=== PATIENT | male | born 1970 | race Caucasian/White ===

== ENCOUNTER 2020-11-06 13:28 | Outpatient (REF) | payer BC, SELFPAY ==
[2020-11-06 14:38] LABS: Abs Immature Grans 0.03 10^3/uL (0.0-0.06); Absolute Basophil Count 0.08 10^3/uL (0.0-0.2); Absolute Eosinophil Count 0.37 10^3/uL (0.0-0.7); Absolute Lymphocyte Count 2.07 10^3/uL (1.2-3.4); Absolute Monocyte Count 0.63 10^3/uL (0.1-0.8); Absolute Neutrophil Count 3.86 10^3/uL (1.2-6.7); Basophils % 1.1; Eosinophils % 5.3; HGB 13.9 g/dL (13.5-17.5); Immature Grans % 0.4; Lymphocytes % 29.4; MCH 33.2 pg (27.0-33.0); MCHC 33.9 % (32.0-36.0); MCV 97.9 fL (80-95); MPV 9.4 fL (8.0-11.0); Monocytes % 8.9; Neutrophils % 54.9; Nucleated RBC 0 %; Platelet Count 245 10^3/uL (130-400); RBC 4.19 10^6/uL (4.36-5.78); RDW 13.1 % (11.8-14.1); RDW-SD 46.8 fL; WBC 7.04 10^3/uL (4.4-10.8)
[2020-11-06 15:27] LABS: ALT 29 U/L (16-63); AST 26 U/L (15-37); Albumin 3.9 g/dL (3.4-5.0); Alkaline Phosphatase 65 U/L (46-116); Anion Gap 11.7 mmol/L (3-11); BUN 5 mg/dL (7-18); Bilirubin, Total 0.9 mg/dL (0.2-1.0); CO2 25.3 mmol/L (21.0-32.0); CREATININE 0.7 mg/dL (0.70-1.30); Calcium 8.9 mg/dL (8.5-10.1); Chloride 104 mmol/L (98-107); Glucose 85 mg/dL (74-106); Potassium 4.3 mmol/L (3.5-5.1); Sodium 141 mmol/L (136-145); Total Protein 7.4 g/dL (6.4-8.2)
[2020-11-09 12:04] LABS: TSH (W/Ref FT4) 0.72 uIU/mL (0.36-3.74)
== END 2020-11-06 13:29 | disposition home or self-care (01) ==
LOC: LBN 13:28
PROVIDERS: Visit Provider Nurse Practitioner Family
DX: R63.4 Abnormal weight loss (principal); R35.8 Other polyuria
CPT/HCPCS: 80053; 84443; 85025

== ENCOUNTER 2020-11-15 12:50 | Emergency (ER) | payer BC, SELFPAY ==
--- NOTE | 2020-11-15 13:00 | DI.CT_ITS ---
Exam(s) CT ABDOMEN PELVIS W EXAM: CT ABDOMEN PELVIS W CLINICAL HISTORY: vomiting blood, weight loss. TECHNIQUE: Imaging Protocol: Axial computed tomography images with coronal and sagittal reformatted images were created and reviewed CONTRAST MATERIAL: Intravenous: Omnipaque 100cc Oral: None COMPARISON: No exams were available for comparison FINDINGS: VISUALIZED LUNG BASES: No nodules nor pleural effusions evident. ABDOMEN: There is no ascites. LIVER: Liver is hypodense implying steatosis. Liver size is upper normal. There are no discrete foc al hepatic lesions. No significant dilatation of intrahepatic ducts. GALLBLADDER/BILIARY: No obvious gallbladder pathology. CBD is not dilated. PANCREAS: No evidence of pancreatic mass nor dilatation of the pancreatic duct. SPLEEN: Spleen is not enlarged. No obvious intrasplenic lesions. Splenic and portal veins are paten t. ADRENALS: There are no significant adrenal masses. KIDNEYS:There is a tiny 2 millimeter cyst in the lateral right renal cortex. No other focal right ki dney findings. No focal findings in the left kidney. No calculi nor hydronephrosis on either side. No hydroureter. No calculi in the urinary bladder. Bladder, however, appears somewhat distended. . ABDOMINAL AORTA: Calcified. Upper normal diameter. Common iliac arteries are calcified and upper no rmal diameter. LYMPH NODES:There is no retroperitineal nor paraaortic adenopathy. ABDOMINAL WALL: No evidence of significant anterior abdominal wall hernia. GI: There is no evidence of bowel obstruction, free air, nor abscess. PELVIS: GI: No evidence of appendicitis.No evidence of sigmoid diverticulitis. LYMPH NODES: There is no intrapelvic nor inguinal adenopathy. REPRODUCTIVE: Prostate is not enlarged. Seminal vesicles unremarkable URINARY BLADDER: Distended. No obvious masses nor calculi within the lumen. OSSEOUS: Peripherally sclerotic benign-appearing bone lesion noted in the right iliac bone, measuring 11 x 8 millimeters. Sacroiliac joints appear unremarkable. Annular bulging with an element of spinal canal stenosis at L 4-5 level IMPRESSION: 1. Hepatic steatosis. No focal hepatic lesions noted. No dilatation of the biliary tree. No obviou s gallstones. 2. Urinary bladder appears somewhat distended. No calculi nor masses therein. No significant focal renal findings with the exception of a tiny benign cyst in the lateral cortex of the right kidney anthony suring 2-3 millimeters. 3. Peripherally sclerotic 11 x 8 millimeter bone lesion in the right iliac bone adjacent to the sacro iliac joint, probably benign. 4. Central spinal canal stenosis at L4-5 level due to annular bulging. RADIATION DOSE DELIVERED: 674.87mGy.cm Total DLP DATA REPOSITORY: All CT scans at this facility are submitted to the National Radiology Data Registry (NRDR) Dose Index Registry (DIR) with the [employer] (ACR). RADIATION OPTIMIZATION: All CT scans at this facility use at least one of these dose optimization te chniques: automated exposure control; mA and/or kV adjustment per patient size (includes targeted exa ms where dose is matched to clinical indication); or iterative reconstruction.
--- NOTE | 2020-11-15 13:00 | RT.EKG_ITS ---
APPROVED REPORT Exam: Resting ECG Reason for Exam: vomiting blood Patient Location: E HR:74 bpm ECG Measurements Heart Rate 74 AXIS NH 140 P 74 QRSd 99 QRS 68 QT 375 T 53 QTc 416 Conclusion Sinus rhythm...normal P axis, V-rate 60- 99 Probable left atrial enlargement...P >50mS, <-0.10mV V1 no STEMI, non-diagnostic EKG I have reviewed and interpreted ECG and agree with software generated interpretation.
[2020-11-15 13:06] VITALS: BP 138/88; PULSE 77; RESP 17; TEMP 36.9; O2SAT 97
[2020-11-15] MEDS: Pantoprazole 40 MG VIAL 80 MG IVP (13:25)
[2020-11-15 13:43] VITALS: BP 130/82; BP 141/88; BP 149/88; PULSE 69; PULSE 73; PULSE 83
[2020-11-15 13:57] VITALS: BP 130/82; PULSE 68; O2SAT 99
[2020-11-15 13:58] VITALS: BP 149/88; PULSE 74; O2SAT 98
[2020-11-15 13:58] LABS: Abs Immature Grans 0.05 10^3/uL (0.0-0.06); Absolute Basophil Count 0.11 10^3/uL (0.0-0.2); Absolute Eosinophil Count 0.09 10^3/uL (0.0-0.7); Absolute Lymphocyte Count 1.81 10^3/uL (1.2-3.4); Absolute Monocyte Count 0.59 10^3/uL (0.1-0.8); Absolute Neutrophil Count 7.42 10^3/uL (1.2-6.7); Basophils % 1.1; Eosinophils % 0.9; HCT 43.3 % (40.0-50.0); HGB 14.7 g/dL (13.5-17.5); Immature Grans % 0.5; MCH 32.3 pg (27.0-33.0); MCHC 33.9 % (32.0-36.0); MCV 95.2 fL (80-95); MPV 9.4 fL (8.0-11.0); Monocytes % 5.9; Neutrophils % 73.6; Nucleated RBC 0 %; Platelet Count 218 10^3/uL (130-400); RBC 4.55 10^6/uL (4.36-5.78); RDW 13.2 % (11.8-14.1); WBC 10.07 10^3/uL (4.4-10.8)
[2020-11-15 13:59] VITALS: BP 141/88; PULSE 76; O2SAT 98
[2020-11-15 14:09] LABS: INR 0.9 (0.9-1.1); Prothrombin Time 9.1 sec (9.3-11.0)
[2020-11-15 14:12] LABS: ALT 61 U/L (16-63); AST 62 U/L (15-37); Albumin 4.3 g/dL (3.4-5.0); Alkaline Phosphatase 92 U/L (46-116); Anion Gap 10.9 mmol/L (3-11); BUN 5 mg/dL (7-18); Bilirubin, Total 1.4 mg/dL (0.2-1.0); CO2 27.1 mmol/L (21.0-32.0); CREATININE 0.7 mg/dL (0.70-1.30); Calcium 9.2 mg/dL (8.5-10.1); Chloride 99 mmol/L (98-107); Glucose 83 mg/dL (74-106); Lipase 127 U/L (73-393); Potassium 4.2 mmol/L (3.5-5.1); Sodium 137 mmol/L (136-145); Total Protein 8.6 g/dL (6.4-8.2)
--- NOTE | 2020-11-15 14:59 | ED.GENADUL_ITS ---
Discharge Plan Disposition Patient Disposition: HOME Condition: Stable Discharge Details Clinical Impression: Vomiting blood, Abnormal weight loss, Fatty liver Primary Care Provider: Bindu,Local ED Provider: Yany Ni Home Meds and New Rx's Prescriptions: New pantoprazole [Protonix] 40 mg tablet,delayed release (DR/EC) 40 mg PO DAILY Qty: 30 RF: 0 Discharge Instructions Additional Instructions: Please follow-up with your primary care physician at the appointment you have scheduled Follow-up with surgery to schedule endoscopy and colonoscopy Take Protonix daily Work on cutting down on your alcohol consumption, try tapering by 1 drink a day You have lesion in your bone the right hip area, please follow-up with your doctor regarding this Talk to your doctor about further testing of your bladder slightly distended on your CAT scan, make sure you are emptying completely Should you have an additional episode of vomiting blood you must return to the hospital immediately for reevaluation Stay away from nonsteroidals like ibuprofen Referrals: Ghislaine Esparza MD [ [facility] STAFF PHYSICIAN] - Discharge Data Discharge Date/Time-TO BE ENTERED AT DEPARTURE: 11/15/20 16:05 Medical Decision Making CBC does not show significant acute abnormality, specifically no anemia PT/INR within normal limits and BUN is 5, I do not suspect active bleeding Bilirubin is mildly elevated at 1.4, AST is mildly elevated at 62, no comparison, no tenderness on abdominal exam Patient is well-appearing, ambulatory with steady gait, stable vitals There is comment about bladder distention on CT scan, patient was able to empty completely during this evaluation and has no urinary complaints at all I placed on Protonix He has an appointment scheduled with primary care physician on the , he is encouraged to this appointment, he will need outpatient endoscopy and colonoscopy He is encouraged to discontinue drinking, he will taper to do so He denies any withdrawal history and palpitations Will not take any nonsteroidals, we will long discussion regarding this He is aware of steatosis on his CT scan and the need to discontinue alcohol Patient is otherwise well in appearance He is given very low threshold to return should he have new or worsening complaints at this time I think he is stable for discharge home, he has had no appetite bleeding since Sunday is very stable diagnostic labs and exam Patient also made aware regarding CT finding of bone lesion in the right iliac crest, instructed to the primary care physician regarding this finding as well Medical Records Medical records reviewed: Yes I reviewed the patient's medical records. Lab Data Lab results reviewed: Yes I reviewed the patient's lab results. HPI General Mode of arrival: ambulatory . Date/Time Provider Initiated Documentation: 11/15/20 12:55 . Limitations to Documentation: no limitations . Information obtained by: patient . HPI Narrative: This 50-year-old male presents with report of vomiting blood. He had one episode on Sunday. He states he felt nauseous and had some vomiting with blood-tinged. He describes it as being bright red. He does drink alcohol daily. 3 or 4 beers he reports. He denies history of withdrawals. He also states he had approximately 25 pounds weight loss in the past 8 months which is unintentional. He smokes alcohol daily. He denies any chest pain or shortness of breath. He denies any dizziness or weakness. He denies any current nausea or vomiting. He states the only reason he is in the emergency room today is at the request of his otherwise he feels well. He denies any recent nonsteroidal use. Denies any dark stools. Related Data Home Medications Medication Instructions Recorded Confirmed pantoprazole [Protonix] 40 mg PO DAILY #30 tab 11/15/20 Previous Rx's Medication Instructions Recorded pantoprazole [Protonix] 40 mg PO DAILY #30 tab 11/15/20 Allergies Allergy/AdvReac Type Severity Reaction Status Date / Time No Known Allergies Allergy Unverified 11/15/20 13:13 General Stated Complaint: GI Bleed ROB: 3 Review of Systems All systems reviewed & are unremarkable except as noted in HPI and below PFSH Social History Smoking/Tobacco Use Status: Current every day Tobacco Type: cigarettes Smoking risk assessment performed?: Yes Drug use: Never Substance use type: does not use Do you feel safe at home: Yes Do you feel safe in your relationship?: Yes Exam Const General: cooperative and no acute distress HENMT Mouth: oral mucosae normal Eyes Sclera: sclerae normal Chest Chest: normal inspection of the chest Resp Effort & Inspection: normal respiratory effort Auscultation: clear to auscultation bilaterally Cardio Rate: regular rate Rhythm: regular rhythm GI Other: No CVA tenderness, no abdominal tenderness appreciated Skin General skin exam: no rashes or lesions noted Neuro General: patient alert and patient oriented x3 Cranial Nerves: CN's II-XI intact bilaterally Extrem General: normal to inspection Psych Appearance: grossly normal Course Vital Signs Vital signs: Vital Signs Temperature 36.9 C 11/15/20 13:06 Pulse 77 11/15/20 13:06 Respiratory Rate 17 11/15/20 13:06 Blood Pressure 138/88 11/15/20 13:06 Pulse Oximetry 97 11/15/20 13:06 Temperature 36.9 C 11/15/20 13:06 Temperature Source Temporal Artery Scan 11/15/20 13:06 Pulse 69 11/15/20 13:43 Respiratory Rate 17 11/15/20 13:06 Respiratory Effort Non-Labored 11/15/20 13:11 Blood Pressure 130/82 11/15/20 13:43 Blood Pressure Position Sitting 11/15/20 13:06 Pulse Oximetry 97 11/15/20 13:06 Oxygen Delivery Method Room Air 11/15/20 13:06 Oxygen Flow Rate 0 11/15/20 13:06 Pain Level 0 11/15/20 13:43 Lab/Test Results Lab/Test Results: Laboratory Tests Range/Units 11/15/20 11/15/20 11/15/20 13:42 13:42 13:42 WBC (4.4-10.8) 10^3/uL 10.07 RBC (4.36-5.78) 10^6/uL 4.55 Hgb (13.5-17.5) g/dL 14.7 Hct (40.0-50.0) % 43.3 MCV (80-95) fL 95.2 H MCH (27.0-33.0) pg 32.3 MCHC (32.0-36.0) % 33.9 RDW (11.8-14.1) % 13.2 Plt Count (130-400) 10^3/uL 218 MPV (8.0-11.0) fL 9.4 Immature Gran % 0.5 Neutrophils % 73.6 Lymphocytes % 18.0 Monocytes % 5.9 Eosinophils % 0.9 Basophils % 1.1 Nucleated RBC % % 0 Absolute Neutrophils (1.2-6.7) 10^3/uL 7.42 H Absolute Lymphocytes (1.2-3.4) 10^3/uL 1.81 Absolute Monocytes (0.1-0.8) 10^3/uL 0.59 Absolute Eosinophils (0.0-0.7) 10^3/uL 0.09 Absolute Basophils (0.0-0.2) 10^3/uL 0.11 PT (9.3-11.0) sec 9.1 L INR (0.9-1.1) 0.9 Sodium (136-145) mmol/L 137 Potassium (3.5-5.1) mmol/L 4.2 Chloride (98-107) mmol/L 99 Carbon Dioxide (21.0-32.0) mmol/L 27.1 Anion Gap (3-11) mmol/L 10.9 BUN (7-18) mg/dL 5 L Creatinine (0.70-1.30) mg/dL 0.7 Estimated GFR/1.73 m2 (mL/min/1.73m2) >= 60.00 Glucose (74-106) mg/dL 83 Calcium (8.5-10.1) mg/dL 9.2 Total Bilirubin (0.2-1.0) mg/dL 1.4 H AST (15-37) U/L 62 H ALT (16-63) U/L 61 Alkaline Phosphatase (46-116) U/L 92 Total Protein (6.4-8.2) g/dL 8.6 H Albumin (3.4-5.0) g/dL 4.3 Lipase (73-393) U/L 127
[2020-11-15] MEDS: Omnipaque 350 MG/ML 100 ML BTL IJ (15:12)
[2020-11-15] MEDS: Normal Saline - Diluent 50 ML VIAL IV (15:13)
[2020-11-15] MEDS: Normal Saline Flush 10 ML SYR IVP (15:14)
[2020-11-15 16:05] VITALS: BP 141/88; PULSE 76; O2SAT 98
== END 2020-11-15 16:05 | disposition home or self-care (01) ==
PROVIDERS: Emergency Provider Physician Assistant
DX: K92.0 Hematemesis (principal); R63.4 Abnormal weight loss; K76.0 Fatty (change of) liver, not elsewhere classified
CPT/HCPCS: 80053; 83690; 93005; 96374; 99285; 74177; 85025; 85610; 93010; 99284; J3490

== ENCOUNTER 2020-12-21 03:39 | Outpatient (CLI) | payer BC, SELFPAY ==
[2020-12-21 09:45] LABS: Source Nasal/Nares
[2020-12-21 13:42] LABS: COVID-19 PCR Negative (Negative)
== END 2020-12-21 03:40 | disposition home or self-care (01) ==
LOC: LBO 03:39
PROVIDERS: PCP Internal Medicine Cardiovascular Disease; Visit Provider Surgery
DX: Z20.822 Contact with and (suspected) exposure to COVID-19 (principal); Z01.818 Encounter for other preprocedural examination
CPT/HCPCS: 87635

== ENCOUNTER 2020-12-22 08:11 | Day surgery (SDC) | payer BC, SELFPAY ==
--- NOTE | 2020-12-22 06:47 | ENDO_ITS ---
Date of service: 12/22/20 Time of Service: : Endoscopy Report DATE OF PROCEDURE: 12/22/20 PRE-OP DIAGNOSIS: Weight loss POST-OP DIAGNOSIS: other (Gastritis and esophagitis) PROCEDURE: 1. EGD with biopsies 2. Colonoscopy SURGEON: Ghislaine Esparza ANESTHESIA TYPE: General:No Airway (Randall Tim, RYANNE) ESTIMATED BLOOD LOSS: 3 PATHOLOGY: other (GE junction, antrum and duodenal bx) COMPLICATIONS: None DISPOSITION: same day INDICATIONS: The patient is here for Colonoscopy pre-op. Family history is unclear. Amount of weight loss is unclear also. 11/12 weighed 72.73kg, today 12/02 weighed 73.7kg. He has not had any bowel habit changes. CT scan from 11/15/20 did not show any GI pathology. However a bony lesion of his right iliac crest was noted. Called and spoke with Dr. Cornejo whom recommends that patient follow up with a PCP to have a bone scan. Relayed this information to the patient and his . They were also provided with contact information for local PCP, so that they can become established with a PCP. -Discussed colonoscopy bowel prep as well as the procedure. Discussed EGD procedure. Discussed possible complications of the procedure to include bleeding, pain, perforation, missed small lesion/polyp, sore throat, aspiration and adverse reaction to the medications. Questions were answered to patient?s satisfaction. No guarantees were implied or given. PREP: Miralax/Dulcolax PROCEDURE START TIME: : PROCEDURE END TIME: :54 COLONOSCOPY RETRACTION TIME: 11 minutes FINDINGS: inflammation in the stomach with some oozing. NO ulcers. Small Hiatal hernia PROCEDURE DESCRIPTION: After informed consent was obtained the patient was take to the procedure room and placed in a supine position. Monitors were applied and a time out was done. The patients name, date of , procedure type, allergies to medications and metal in their body was reviewed. A bite block was placed and the patient was sedated. Once sedated and comfortable the gastroscope was advanced through the oropharynx which was grossly normal into the esophagus. The proximal and mid- esophagus were normal. In the distal esophagus there was mild inflammation noted. The scope was advanced into the stomach and through the pylorus into the 3rd portion of the duodenum. The duodenum was noted to be normal. Biopsies were done. The scope was retracted back into the stomach. There was moderate inflammation noted in the antrum and body. Biopsies were done to rule out H. pylori. There were no ulcers. The scope was retro-flexed. The cardia and fundus were noted to be normal. There was a small hiatal hernia noted. The scope was retracted back into the esophagus and biopsies were done of the GE junction to rule out Chatterjee's. The Z line was regular. The GE junction was at 41 cm. While the patient was still sedated they were placed in a left decubitous position. A rectal exam was done. External exam was normal. Internal exam revealed a normal sphincter tone and no palpable masses. The prostate felt smooth. The scope was then introduced and retro-flexed. No internal hemorrhoids, masses or polyps were identified on retroflexion. The scope was then advanced to the cecum without difficulty. The ileocecal valve and appendiceal orifice were identified. The prep was adequate. The scope was then slowly retracted over 11 minutes back into the rectum. There were no polyps and no diverticula. The scope was removed and the patient was woken up and taken back to Same day surgery in stable condition. The patient tolerated the procedure well and there were no immediate complications. Follow up: with PCP in 7-10 days. I will add Carafate for 2 weeks. Low acid diet
--- NOTE | 2020-12-22 06:48 | W.PM.DSUDISC ---
Discharge Plan Disposition Patient Disposition: HOME Condition: Good Discharge Details Reason For Visit: [place]/EGD Attending Provider: Ghislaine Esparza Primary Care Provider: No,Local Home Meds and New Rx's Prescriptions: Continued vitamin B complex [B Complex-Vitamin B12] Tablet 1 tab PO DAILY RF: 0 cholecalciferol (vitamin D3) 25 mcg (1,000 unit) capsule 25 mcg PO DAILY RF: 0 milk thistle seed extract 200 mg capsule 400 mg PO BID RF: 0 omega-3 fatty acids 500 mg capsule 500 mg PO DAILY RF: 0 selenium 200 mcg capsule 200 mcg PO DAILY RF: 0 zinc 50 mg tablet 50 mg PO DAILY RF: 0 pantoprazole [Protonix] 40 mg tablet,delayed release (DR/EC) 40 mg PO DAILY Qty: 30 RF: 0 Discontinued bisacodyl [Dulcolax (bisacodyl)] 5 mg tablet,delayed release (DR/EC) 5 mg PO ONCE Qty: 4 RF: 0 polyethylene glycol 3350 17 gram/dose powder 238 g PO ONCE Qty: 238 RF: 0 Discharge Instructions Instructions: Diet for Stomach Ulcers and Gastritis (ED), Gastritis (DC), GERD (Gastroesophageal Reflux Disease) (DC) Additional Instructions: Findings: inflammation of the stomach and esophagus Normal colonoscopy Follow up: with PCP in 7-10 days Please call if you develop: fevers >101.5 Nausea or Vomiting Abdominal pain that is not transient Rectal bleeding that is more then a tbsp A hard abdomen and inability to pass gas DAY SURGERY UNIT POST ENDOSCOPY INSTRUCTIONS Instructions for everyone who is given Anesthesia: For your safety, please do the following for the next 24 Hours: a. Do not drive or operate dangerous equipment b. Do not drink alcohol beverages or use any recreational drugs for the first 24 hours or while taking pain medications. The medications in your body may have a reaction that can be dangerous. c. Do not make any important decisions or sign any important papers 1. Generally there are no restrictions on your activity after a day or so has gone by, but you may feel a bit fatigued for a few days. 2. After you arrive home you may have a light meal and return to a normal diet as you can tolerate it without feeling sick to your stomach. 3. After surgery, you may feel pain or discomfort. This should be only transient, but if it persists please contact your doctor. 4. If there are any questions regarding the findings of your procedure, please feel free to contact your doctor. 6. If you are unable to contact your doctor with a problem, contact the hospital at [phone]. 7. Continue all your regular medications unless directed otherwise. I understand the above instructions and have no questions. Signature of Patient or Responsible Adult Escort Date/Time Name of Responsible Adult Escort Signature of Nurse Date/Time Activity:: Activity as Tolerated Diet:: As Tolerated Discharge Orders Discharge Orders: Discharge Order (Routine); Ordered 12/22/20 Ordered By: Ghislaine Esparza
--- NOTE | 2020-12-22 07:46 | ANES.PREOP_ITS ---
General Info Date of Service Date Performed: 12/22/20 Height: 5 ft 10 in Weight: 73.709 kg Body Mass Index (BMI): 23.3 Surgical Procedure: Operation Date: 12/22/20 09:20 Proposed Procedures Side Surgeon p Colonoscopy/Gastroscopy Ghislaine Esparza MD Meds Allergies and Home Medications Allergies Allergy/AdvReac Type Severity Reaction Status Date / Time No Known Allergies Allergy Unverified 12/22/20 08:24 Home Medication Medication Instructions Recorded pantoprazole [Protonix] 40 mg PO DAILY #30 tab 11/15/20 bisacodyl 5 mg tablet,delayed 5 mg PO ONCE #4 tab 12/02/20 release cholecalciferol (vitamin D3) 25 25 mcg PO DAILY 12/02/20 mcg (1,000 unit) capsule milk thistle seed extract 200 mg 400 mg PO BID cap 12/02/20 capsule omega-3 fatty acids 500 mg capsule 500 mg PO DAILY 12/02/20 polyethylene glycol 3350 17 238 g PO ONCE #238 g 12/02/20 gram/dose oral powder selenium 200 mcg capsule 200 mcg PO DAILY 12/02/20 vitamin B complex 1 tab PO DAILY 12/02/20 zinc 50 mg tablet 50 mg PO DAILY 12/02/20 Current Visit Medications: Current Medications Generic Name Dose Route Start Last Admin Trade Name Freq PRN Reason Stop Dose Admin Hyoscyamine Sulfate 0.125 mg 12/22/20 06:49 Hyoscyamine 0.125 Mg Sl/Oral/Chew SL DIRECTED PRN Ringer's Solution 1,000 mls @ 80 mls/hr 12/22/20 06:00 IV 01/20/21 23:59 [facility] IV Miscellaneous Supplies 1 each 12/22/20 06:00 Iv Access IV 01/20/21 23:59 DIRECTED CALOS Ondansetron HCl 4 mg 12/22/20 06:49 Ondansetron 4 Mg/2 Ml Vial IVP Q4H PRN PRN Nausea / Vomiting Sodium Chloride 0 ml 12/22/20 06:00 Normal Saline Flush 10 Ml Syr IV 01/20/21 23:59 PRN PRN Sodium Chloride 0 ml 12/22/20 06:00 Normal Saline 10 Ml Vial IJ 01/20/21 23:59 DIRECTED PRN Sterile Water 0 ml 12/22/20 06:00 Water,Injection,Sterile 10 Ml Vial IJ 01/20/21 23:59 DIRECTED PRN PFSH Active Problems Active Problems: Problem Status Onset Code Tobacco use disorder F17.200 Polyuria R35.8 Screening for colon cancer Z12.11 Vomiting blood K92.0 Abnormal weight loss R63.4 Fatty liver K76.0 Medical History Medical History Alcohol abuse Weight loss, unintentional Tobacco Smoking/Tobacco Use Status: Current every day Tobacco Type: cigarettes Years smoked: 36 Alcohol Alcohol Intake: current Alcohol intake frequency: 3 or more drinks per day Alcohol type: beer Details: Reports 6+ drinks/day, more on the weekends. Substance Use Substance use: Never Substance use type: does not use Vital Signs and Lab Results Lab Results Blood Type / Crossmatch: No Data to Display Complete Blood Count: No Data to Display Complete Metabolic Panel: No Data to Display Liver Function Panel: No Data to Display Coagulation Panel: No Data to Display Cardiac Panel: No Data to Display Arterial Blood Gas: No Data to Display Venous Blood Gas: No Data to Display Pancreas Panel: No Data to Display Thyroid Panel: No Data to Display Infectious Disease: Coronavirus (COVID-19)(PCR) Negative (Negative) 12/21/20 08:33 12/21/20 Coronavirus 2019 Source Nasal/Nares 12/21/20 08:33 12/21/20 Blood Cultures: No Data to Display Toxicology Panel: No Data to Display Imaging and Studies Imaging and Studies EKG Summary: Conclusion Sinus rhythm...normal P axis, V-rate 60- 99 Probable left atrial enlargement...P >50mS, <-0.10mV V1 Anesthesia Assessment and Plan Anesthesia History Personal History: No History of Anesthesia Complications Family History: No Family History of Anesthesia Complications Exercise Tolerance Exercise Tolerance: Metabolic Equivalents>4 Pertinent Negatives Pertinent Negatives: No Symptoms of GERD, No Major Cardiovascular Symptoms or Complaints, No Major Pulmonary Symptoms or Complaints and No History of CVA/TIA Cardiac & Pulmonary Exam Cardiac Exam: Normal S1/S2 Heart Sounds Pulmonary Exam: Clear Bilateral Breath Sounds Airway Exam Known Difficult Airway: No Mallampati Class: 2 Mouth Opening: Normal (> 3cm) Thyromental Distance: Greater than 3 cm Neck Range of Motion: Full ROM Neck Circumference: Normal Teeth Condition: Removable Dentures/Plates Upper and Removable Dentures/Plates Lower ASA Classification ASA Score: ASA 2 Emergency Case?: No NPO Status NPO Status: NPO Clears >2 hours, Solids >8 hours Anesthesia Plan Resuscitation Status: Full Code Anesthesia Technique: General Anesthesia Airway Planned: Natural Airway Monitors Used: Standard Monitors
[2020-12-22 08:27] VITALS: BP 156/97; PULSE 84; RESP 18; TEMP 36.5; O2SAT 99
[2020-12-22] MEDS: Lactated Ringers 1,000 ML 80 ML IV (08:38)
[2020-12-22 09:02] VITALS: BMI 23.3
--- NOTE | 2020-12-22 09:29 | STOM_PTH ---
PATIENT: Garry Faye LOC: [facility] U#:[id number] AGE/SX: 50/M ROOM: RE12/22/[address]: Ghislaine Esparza MD : 1970 BED: DIS: 12/22/2020 SPEC #: [id number] RECD: 12/22/20 12:44 STATUS: ED REQ #: [id number] CONNER: 12/22/20 09:[address]: Ghislaine Esparza DEPT: Surgical Specimen RECD BY: Yany Lama ENTERED: 12/22/20 12:46 SP TYPE: STOMACH OTHR DR: No Local Tissues: 1 - BIOPSY BOWEL 2 - STOMACH BIOPSY 3 - STOMACH BIOPSY 4 - ESOPHAGUS BIOPSY Procedures: GROSS AND MICRO LEVEL 4 Comments: [id number]
[2020-12-22 10:00] VITALS: BP 99/67; PULSE 76; RESP 18; TEMP 36.4; O2SAT 96
--- NOTE | 2020-12-22 10:01 | W.ANESPOSTOP ---
Postoperative Evaluation Date, Time and Location Date Performed: 12/22/20 Time Performed: 10:01 Patient Location: Day Surgery Unit Vital Signs Most Recent Imported Vital Signs: Most Recent Vital Signs Temp Pulse Resp BP Pulse Ox 36.5 C 84 18 156/97 H 99 12/22/20 08:27 12/22/20 08:27 12/22/20 08:27 12/22/20 08:27 12/22/20 08:27 Most Recent Manually Entered Vital Signs: Adult Blood Pressure: 99/67 Heart Rate: 71 Respirations: 16 Oxygen Saturation (%): 98 Temperature (C): 36.7 C Pain Score (0-10 Scale): 0 Assessment Mental Status: Awake (Alert & Oriented to Patient Baseline) Airway and Respiratory Function: Patent airway with normal (patient baseline) respiratory exam Cardiovascular Function: Hemodynamically Stable Hydration Status: Adequately Hydrated Nausea & Vomiting: No Nausea or Vomiting Pain: Pt. Denies Any Pain Peripheral Nerve Block: Patient did not receive a nerve block
[2020-12-22 10:03] VITALS: BP 99/67; PULSE 71; RESP 16; TEMPC 36.7; O2SAT 98
[2020-12-22 10:21] VITALS: BP 99/67; PULSE 76; RESP 18; TEMP 36.4; O2SAT 96
[2020-12-22 10:40] VITALS: BP 139/89; PULSE 60; RESP 18; TEMP 36.4; O2SAT 97
== END 2020-12-22 11:07 | disposition home or self-care (01) ==
PROVIDERS: Visit Provider Surgery
PROC: (CPT 43239; principal; 2020-12-22 09:15)
DX: R63.4 Abnormal weight loss (principal); K29.70 Gastritis, unspecified, without bleeding; K29.80 Duodenitis without bleeding; K31.89 Other diseases of stomach and duodenum; K31.7 Polyp of stomach and duodenum; K21.00 Gastro-esophageal reflux disease with esophagitis, without bleeding; K44.9 Diaphragmatic hernia without obstruction or gangrene; R93.7 Abnormal findings on diagnostic imaging of other parts of musculoskeletal system; F10.10 Alcohol abuse, uncomplicated; F17.210 Nicotine dependence, cigarettes, uncomplicated
CPT/HCPCS: 43239; 88305; J2001; J2250